=== PATIENT | male | born 2000 | race Caucasian/White ===

== ENCOUNTER → 2018-11-27 | Outpatient (CLI) | payer OTHER | END | disposition home or self-care (01) | LOC: RAH 09:48 | PROVIDERS: ATTEND Internal Medicine Critical Care Medicine | DX: S82.401D Unspecified fracture of shaft of right fibula, subsequent encounter for closed fracture with routine healing (principal); X58.XXXD Exposure to other specified factors, subsequent encounter | CPT/HCPCS: 73610 ==